=== PATIENT | female | born 1980 | race Caucasian/White ===

== ENCOUNTER 2021-03-03 11:14 | Emergency (ER) | payer BC, SELFPAY ==
[2021-03-03 11:21] VITALS: BP 141/86; PULSE 85; RESP 15; TEMP 36.7; O2SAT 100; BMI 34.2
[2021-03-03] MEDS: Fluorescein Sodium STRIP 1 STRIP EYE-LEFT (11:39)
[2021-03-03] MEDS: Tetracaine HCl/PF 0.5% Oph Sol 4 ML DROPS 3 DROP EYE-LEFT (11:39)
--- NOTE | 2021-03-03 11:58 | ED_ITS ---
HPI - Eye Problem General Chief complaint: Eye Problems Stated complaint: red swollen lt eye Time Seen by Provider: 03/03/21 11:29 Source: patient Mode of arrival: ambulatory History of Present Illness HPI Narrative: 40-year-old female presenting to the ED complaining of left eye pain, erythema, and foreign body sensation since yesterday. Admits to slight drainage/crusting this morning. Denies direct trauma. Denies known foreign body, visual change/loss/blurry vision, nausea/vomiting Patient does not were glasses or contacts MD chief complaint: eye pain and eye redness Related Data Previous Rx's Medication Instructions Recorded polymyxin B sulfate 10,000 1 drp OPHTHALMIC-LEFT Q3H 7 Days 03/03/21 unit-trimethoprim 1 mg/mL eye #10 ml drops (Polytrim) Allergies Allergy/AdvReac Type Severity Reaction Status Date / Time No Known Allergies Allergy Verified 03/03/21 11:21 [No Known Allergies*] Review of Systems Review of Systems: Constitutional: No Fever, No Chills ENT/Mouth: No Ear Pain, No Nasal Congestion, No sore throat, No Rhinorrhea Eye: + left eye pain, + left eye irritation/erythema, no visual loss Gastrointestinal: No Nausea, No Vomiting Skin: No Skin Lesions, No rash Neuro: no headache Yes all other systems are reviewed and are negative Eyes: Eyes: Denies photophobia PMFSH Past Medical History Attestation statement: The following information was validated with the patient. Medical History (Updated 03/03/21 @ 11:59 by LORI Fried) No known health problems Social History Social History Advance Directives: Yes Advance Directives Information Provided: Yes Advance Directives on File: No Patient : No Physical Exam Vital Signs: Vital Signs: Last Vital Signs Temp 98.1 F 03/03/21 11:21 Pulse 85 03/03/21 11:21 Resp 15 03/03/21 11:21 BP 141/86 H 03/03/21 11:21 Pulse Ox 100 03/03/21 11:21 Body Mass Index 34.2 Const: General: cooperative and healthy appearing Orientation/consci ousness: patient oriented x3 Limitations: no limitations HENMT: Head: Yes normal to inspection Ears: hearing grossly normal bilaterally General nose exam: Normal external nose present Face and sinus: Yes normal facial exam Eyes: Other: Visual acuity 20/30 right eye, 20/200 left eye IOP: 12, 13, 12 in left eye General: appearance normal, both eyes and all related structures Periorbital: periorbital findings normal Eyelids: Yes eyelids normal Conjunctivae: conjunctival abnormal left conjunctival injection diffuse; Negative for without discharge Corneas: fluorescein used (No fluorescein uptake in left eye, however tetracaine relieved pain) Pupils: Equal, round and reactive pupils present EOM: EOMs intact bilaterally and no movement deficit Direct Ophthalmoscopy: normal light reflex, no photophobia and No photophobia Neck: Neck: Yes normal visual inspection and Yes no meningeal signs Resp: Effort & Inspection: normal respiratory effort and no respiratory distress Cardio: Rate: regular rate Skin: Rashes: no rashes Wounds: no wounds Neuro: General: patient oriented x3 and no meningeal signs Cranial nerves: Yes Equal, round and reactive pupils present Gait exam (Neuro): Normal gait present Extrem: General: Yes normal to inspection MDM - Eye Problem MDM Narrative Medical decision making narrative: 40-year-old female presenting to the ED complaining of left eye pain, erythema, and foreign body sensation since yesterday. On exam VSS, NAD/well-appearing, physical exam as above. No fluorescein uptake however tetracaine completely relieved pain. IOP is WNL, EOMs intact, no evidence of globe rupture. Low concern for glaucoma/preseptal or orbital cellulitis Discharge Plan Discharge Clinical Impression: Corneal abrasion Qualifiers: Encounter type: initial encounter Laterality: left Qualified Code(s): S05.02XA - Injury of conjunctiva and corneal abrasion without foreign body, left eye, initial encounter Patient Disposition: Home, Self-Care Instructions: Corneal Abrasion (ED) Additional Instructions: You likely have a corneal abrasion, Polytrim eyedrops are antibiotic drops, please use as directed You need to follow-up with the paper machine back tender on Friday If her symptoms persist or worsen, you have nausea/vomiting, visual loss return to the ED med Prescriptions: New polymyxin B sulf-trimethoprim [Polytrim] 10,000 unit- 1 mg/mL drops 1 drp ophthalmic-Left Q3H 7 Days Qty: 10 RF: 0 Referrals: Isaiah Aldana [Physician] - 2 days
== END 2021-03-03 12:44 | disposition home or self-care (01) ==
PROVIDERS: Emergency Provider Emergency Medicine; PCP Nurse Practitioner Family
DX: S05.02XA Injury of conjunctiva and corneal abrasion without foreign body, left eye, initial encounter (principal); X58.XXXA Exposure to other specified factors, initial encounter; Y93.9 Activity, unspecified; Y92.9 Unspecified place or not applicable; Y99.9 Unspecified external cause status
CPT/HCPCS: 99283; 99284

== ENCOUNTER 2021-04-29 16:09 | Emergency (ER) | payer BC, SELFPAY ==
--- NOTE | ~2021-04-29 | XR_ITS ---
EXAMINATION: XR WRIST, RIGHT CLINICAL INFORMATION: Right wrist pain after fall. COMPARISON: None TECHNIQUE: PA, lateral, and oblique views of the right wrist. FINDINGS: The bones and soft tissues are normal. No fracture. Alignment is anatomic with normal joint spaces. No erosions or abnormal soft tissue calcifications. XR/XR wrist RT min 3V IMPRESSION: Unremarkable right wrist exam
[2021-04-29 16:16] VITALS: BP 137/86; PULSE 80; RESP 18; TEMP 36.8; O2SAT 99; BMI 34.2
--- NOTE | 2021-04-29 17:25 | ED_ITS ---
HPI - Extremity Problem General Chief complaint: Extremity Injury, Upper Stated complaint: Fall/R wrist pain Time Seen by Provider: 04/29/21 17:09 Source: patient Mode of arrival: ambulatory Limitations: no limitations History of Present Illness HPI Narrative: Patient presents to the ED for right wrist pain bending down low and breaking fall by putting wrist on fence. patient states sharp edge of fence punctured her wrist and has had decreased ROM ever since. Patient denies hitting head, body hitting the ground or loss of consciousness. MD Complaint: extremity pain Related Data Previous Rx's Medication Instructions Recorded polymyxin B sulfate 10,000 1 drp OPHTHALMIC-LEFT Q3H 7 Days 03/03/21 unit-trimethoprim 1 mg/mL eye #10 ml drops (Polytrim) cephalexin 500 mg capsule 500 mg PO QID #28 cap 04/29/21 naproxen 500 mg tablet 500 mg PO BID PRN 10 Days #20 tab 04/29/21 Allergies Allergy/AdvReac Type Severity Reaction Status Date / Time No Known Allergies Allergy Verified 04/29/21 16:16 [No Known Allergies*] Review of Systems Review of Systems: Yes all other systems are reviewed and are negative Constitutional: Constitutional: Reports as per HPI and Reports no additional constitutional complaints Eyes: Eyes: Reports as per HPI and Reports no additional eye complaints ENT: Reports system reviewed and no additional complaints, except as documente d and Reports as per HPI Cardiovascular: Cardiovascular: Reports as per HPI and Reports no additional cardiovascular complaints Respiratory: Respiratory: Reports as per HPI and Reports no additional respiratory complaints Gastrointestinal: Gastrointestinal: Reports as per HPI and Reports no additional gastrointestinal complaints Genitourinary: Genitourinary: Reports no additional female genitourinary complaints and Reports as per HPI Musculoskeletal: Musculoskeletal: Reports no additional musculoskeletal complaints, Reports as per HPI and Reports arthralgias (wrist pain) Integumentary/Breasts: Skin/Breast: Reports system reviewed and no additional complaints, except as docu and Reports as per HPI Psychiatric: Psychiatric: Reports no additional psychiatric complaints and Reports as per HPI PMFSH Past Medical History Medical History (Updated 04/29/21 @ 17:53 by LORI Mccracken) No known health problems Social History Social History Advance Directives: No Advance Directives Information Provided: No Patient : No Physical Exam Vital Signs: Vital Signs: Last Vital Signs Temp 98.2 F 04/29/21 16:16 Pulse 80 04/29/21 16:16 Resp 18 04/29/21 16:16 BP 137/86 04/29/21 16:16 Pulse Ox 99 04/29/21 16:16 Body Mass Index 34.2 Const: General: cooperative, healthy appearing and comfortable Orientation/consciousness: patient oriented x3 HENMT: Head: Yes normal to inspection, Yes No palpable skull fracture present, Yes normocephalic, Yes atraumatic and No abrasion Eyes: General: appearance normal, both eyes and all related structures Neck: Neck: Yes normal visual inspection, Yes full ROM, Yes no lymphadenopathy, Yes no meningeal signs, Yes trachea midline, Yes supple and No tender Chest: Chest palpation & inspection: normal inspection of the chest and normal palpation of entire chest wall Resp: Effort & Inspection: normal respiratory effort and able to speak in complete sentences Auscultation: clear to auscultation bilaterally Cardio: Jugular venous distension: no JVD Heart sounds: S1 normal heart sound present and S2 normal heart sound present GI: Inspection: Yes normal to inspection Palpation (GI): Soft to palpation, not firm, nontender, no guarding and not rigid : General: No CVA tenderness and Yes no CVA tenderness Back/Spine/Pelvis: Back: no CVA tenderness, No CVA tenderness and No back tenderness Skin: General skin exam: no rashes or lesions noted and elasticity normal Neuro: General: patient oriented x3, gait normal, no meningeal signs and CN's II-XI intact bilaterally Cranial nerves: Yes CN's II-XII intact bilaterally Extrem: General: Yes normal to inspection and Yes full ROM Hand/finger images: 1. small puncture wound and significant tenderness on palpation. negative for any active bleeding. patient able to flex and extend wrist, but with significant limitation due to pain. patient able to do Ok sign with all fingers. Capillary refill intact. Neuro and vascular exam is intact. negative for signs of infection Psych: Appearance: grossly normal, well kempt and not disheveled Course Course Course Narrative: Sent for xray Reevaluation(s) Reevaluation #1: Xray negative for any fractures. Patient explained differential may be muscle bruise, nerve damage or tendon/ligament injury due to puncture wound. patient placed in velcro splint and will be discharged with antibiotics. patient uptodate with tetanus. Puncuture wound was cleaned. Time: 17:48 MDM - Extremity (Nontraumatic) MDM Narrative Medical decision making narrative: Wrist sprain. puncuture wound Discharge Plan Discharge Clinical Impression: Puncture wound, Sprain of wrist Patient Disposition: Home, Self-Care Instructions: Wrist Injury (ED), Puncture Wound (ED) Additional Instructions: Xray negtive for fracture. History and physical exam indicate possible nerve vs tendon injury. you will need follow up with Dr. Brooke of Hand Surgery for ree-valuation and MRI. Return to the ED immeidatley for swelling, redness, pus discharge, numbness/tingling/paralysis, bluish black discoloration, or any other concerning symptoms. Prescriptions: New cephalexin 500 mg capsule 500 mg PO QID Qty: 28 RF: 0 naproxen 500 mg tablet 500 mg PO BID PRN (Reason: pain) 10 Days Qty: 20 RF: 0 No Action polymyxin B sulf-trimethoprim [Polytrim] 10,000 unit- 1 mg/mL drops 1 drp ophthalmic-Left Q3H 7 Days Qty: 10 RF: 0 Referrals: Radha Brooke MD [Physician] - 2 days (Puncture wound. decrease ROM of wrist. possible nerve vs tendon injury. WIll need MRI.) Discharge Date/Time: 04/29/21 18:11 Print Language: Argentine
[2021-04-29] MEDS: Ketorolac Tromethamine 15 MG/ML VIAL 30 MG IM (17:44)
== END 2021-04-29 18:11 | disposition home or self-care (01) ==
PROVIDERS: Emergency Provider Internal Medicine; PCP Nurse Practitioner Family
DX: S63.501A Unspecified sprain of right wrist, initial encounter (principal); S61.531A Puncture wound without foreign body of right wrist, initial encounter; M25.531 Pain in right wrist; X50.1XXA Overexertion from prolonged static or awkward postures, initial encounter; Y93.9 Activity, unspecified; Y92.9 Unspecified place or not applicable; Y99.9 Unspecified external cause status; Z79.899 Other long term (current) drug therapy
CPT/HCPCS: 73110; 96372; 99284; J1885

== ENCOUNTER → 2021-04-30 13:30 | Outpatient (BNVA) | payer BC, SELFPAY | PROVIDERS: Visit Provider Orthopaedic Surgery ==

== ENCOUNTER → 2021-05-02 12:23 | Outpatient (BNVA) | payer BC, SELFPAY | PROVIDERS: Visit Provider Orthopaedic Surgery ==

== ENCOUNTER 2022-01-18 13:42 | Emergency (ER) | payer BC, SELFPAY ==
--- NOTE | ~2022-01-18 | CT_ITS ---
EXAMINATION: CT abdomen pelvis wo con CLINICAL INFORMATION: Reason for Exam right flank pain + covid COMPARISON: No prior CT available for comparison. TECHNIQUE: Multidetector volumetric imaging was performed from the superior aspect of the liver through the pubic symphysis 100 mL of Omnipaque 350 injected Sagittal and coronal reformatted images were obtained on the technologist's workstation. This CT examination was performed using dose optimization techniques as appropriate, variously including the following: *Automated exposure control *Adjustment of mA and/or kV according to patient size (this includes techniques or standardized protocols for targeted exams where dose is matched to indication/reason for exam; i.e. extremities or head) *Use of iterative reconstruction technique DLP: 836 mGy-cm FINDINGS: LOWER THORAX: Included lung bases are clear. HEPATOBILIARY: No focal hepatic lesions. No biliary ductal dilatation. GALLBLADDER: Gallbladder unremarkable. SPLEEN: Spleen is normal in size. PANCREAS: No focal mass or ductal dilatation. STOMACH AND GASTROINTESTINAL TRACT: Stomach is grossly unremarkable. There is no bowel distention or thickening. No CT evidence of appendicitis. ADRENALS: No adrenal nodules. KIDNEYS/URETERS: No hydronephrosis, stones or solid mass lesions. Tiny cyst protruding from the upper pole left kidney 0.6 cm otherwise kidneys normal. URINARY BLADDER: Partially decompressed. PELVIC VISCERA: Bulky heterogeneous uterus, cannot rule out underlying uterine masses possibly fibroids, ovarian follicles, there is a free fluid in the pelvis nonspecific. PERITONEUM: Small amount of free fluid in the dependent portion of the pelvis uncertain etiology. LYMPH NODES: No lymphadenopathy. VASCULAR:Abdominal aorta normal in size, no aneurysm found. BONES, ABDOMINAL WALL AND SOFT TISSUES: Sclerotic density in the right iliac bone probably bone island. CT/CT abdomen pelvis wo con IMPRESSION: *No CT evidence of appendicitis, normal appendix identified. *Heterogeneous bulky uterus, possibly underlying uterine masses, possibly fibroid uterus, may consider correlation with follow-up pelvic ultrasound. * Small amount of free fluid in the dependent portion of the pelvis cul-de-sac uncertain etiology. *No kidney stone or hydronephrosis. No other explanation for patient's pain symptoms.
--- NOTE | ~2022-01-18 | XR_ITS ---
EXAMINATION: XR CHEST CLINICAL INFORMATION: Cough. COVID. COMPARISON: None TECHNIQUE: 2 views of the chest were obtained. FINDINGS: Right infrahilar opacity suspicious for pneumonia. Trace right effusion on lateral radiograph. Normal lung volumes. Normal heart size without pulmonary edema. Normal gas pattern. No acute osseous finding. XR/XR chest 2V IMPRESSION: Right infrahilar opacity and trace right effusion suspicious for pneumonia.
[2022-01-18 14:10] VITALS: BP 125/78; PULSE 80; RESP 18; TEMP 37.1; O2SAT 96; BMI 32.2
[2022-01-18 14:51] LABS: MANUAL DIFF FLAG NO
[2022-01-18 14:53] LABS: Basophils Percent Auto 0.2 % (0-2); Eosinophils Absolute Auto 0.2 X10*3/uL (0.0-0.4); Eosinophils Percent Auto 2.3 % (0-4); Hemoglobin 12.9 g/dl (12.0-16.0); Imm Gran Abs Auto 0.01 X10*3/uL (0.00-0.03); Imm Gran Pct Auto 0.1 % (0.0-0.4); Lymphocytes Absolute Auto 1.6 X10*3/uL (1.2-4.9); Mean Corpuscular HGB Conc 32.3 g/dl (31.0-35.0); Mean Corpuscular Hemoglobin 27.8 pg (27.0-33.0); Mean Corpuscular Volume 86.2 fL (80.0-98.0); Mean Platelet Volume 10.3 fL (9.4-12.3); Monocytes Absolute Auto 0.5 X10*3/uL (0.1-1.2); Monocytes Percent Auto 5.5 % (2-11); Neutrophils Absolute Auto 6.6 x10*3/uL (2.0-8.3); Neutrophils Percent Auto 73.9 % (45-73); Platelet Count 322 X10*3/uL (160-400); Red Blood Count 4.64 X10*6/uL (4.20-5.50); Red Cell Distribution Width 13.3 % (11.0-16.0); White Blood Count 8.9 X10*3/uL (4.8-10.8)
[2022-01-18 15:14] LABS: Anion Gap 10 (12-20); Blood Urea Nitrogen 9 mg/dL (9-16); Calcium 8.4 mg/dL (8.4-10.2); Carbon Dioxide 27 mmol/L (22-29); Chloride 106 mmol/L (96-108); Creatinine Clr Calc Pharmacy 115.7; Estimated Glomerular Filt Rate > 60; Glucose Random 96 mg/dL (60-115); Potassium 3.7 mmol/L (3.3-5.1); Sodium 139 mmol/L (135-145)
[2022-01-18 16:53] LABS: UPreg QC Valid YES; Urine Pregnancy NEGATIVE (NEGATIVE)
[2022-01-18 16:53] LABS: Appearance Urine CLEAR; Color Urine YELLOW; Glucose Urine UA NEG (NEG); Leukocyte Esterase Urine NEG (NEG); Nitrite Urine NEG (NEG); PH 5.5 (5.0-8.0); Specific Gravity - Urine 1.025 (1.005-1.025); UACC Culture Trigger NO; Urine Blood 1+ (NEG); Urine Ketones NEG (NEG); Urine Protein NEG (NEG-TRACE)
[2022-01-18 16:56] LABS: Squamous Epithelial Cell Urine 1+ /LPF; WBC Urine 0 /HPF (0-4)
[2022-01-18 17:11] LABS: Alanine Aminotransferase 8 U/L (0-31); Albumin Level 4.2 g/dL (3.5-5.0); Alkaline Phosphatase 79 U/L (39-117); Aspartate Amino Transferase 11 U/L (5-31); Bilirubin Direct 0.2 mg/dL (0.0-0.5); Bilirubin Total 0.4 mg/dL (0.0-1.0); Lipase 27 U/L (8-78); Total Protein 7.1 g/dL (6.5-8.0)
[2022-01-18 17:17] LABS: HCG Quantitative < 2 mIU/mL
--- NOTE | 2022-01-18 17:28 | ED_ITS ---
HPI - Back Pain/Injury General Chief Complaint: Back Pain/Injury Stated Complaint: kidney pain Time Seen by Provider: 01/18/22 16:23 Source: patient Mode of arrival: ambulatory Limitations: no limitations History of Present Illness HPI Narrative: 41-year-old female who reports she just tested positive for COVID yesterday who denies any other medical history presenting to the ED with complaints of back pain right-sided that is radiating to her right flank that started around 8-9 p.m. while she was just resting and worse today. She reports that she also seen some blood in her urine. She reports she has never had this pain in the past. She also reports a dry cough for the past 3 weeks this is why she tested herself for COVID. She denies any fevers, chills, dizziness, headaches, neck pain/stiffness, chest pain or shortness of breath consciousness exertion, orthopnea, palpitations, paresthesias, abdominal distension or weight gain, diarrhea constipation, black or bloody stools, dysuria, abnormal vaginal discharge, recent travel or sick contacts or any other symptoms complaints or concerns at this time. MD elicited complaint: back pain Onset (ago): day(s) (Since last night) Timing: constant and progressively worsening Severity: moderate Similar Symptoms Previously: No Quality: aching Location: right flank and right lower back Radiation: abdomen Exacerbating factors: movement, sitting upright, walking, lifting and other (And palpation) Relieving factors: none Context: unknown Associated symptoms: hematuria Treatments prior to arrival: other (She has tried [id number] medication no symptomatic relief) Work related injury: No Related Data Home Medications Medication Instructions Recorded Confirmed bupropion HCl 100 mg tablet,12 hr 100 mg PO BEDTIME 04/30/21 sustained-release (Wellbutrin SR) sumatriptan succinate 25 mg tablet 25 mg PO Q2-4H PRN 04/30/21 venlafaxine 25 mg tablet 25 mg PO DAILY 04/30/21 Previous Rx's Medication Instructions Recorded polymyxin B sulfate 10,000 1 drp ophthalmic-Left Q3H 7 days 03/03/21 unit-trimethoprim 1 mg/mL eye #10 mL drops (Polytrim) cephalexin 500 mg capsule 500 mg PO QID #28 caps 04/29/21 naproxen 500 mg tablet 500 mg PO BID PRN pain 10 days #20 04/29/21 tabs sulfamethoxazole 800 1 tab PO BID 7 days #14 tabs 04/30/21 mg-trimethoprim 160 mg tablet (Bactrim DS) codeine 10 mg-guaifenesin 100 mg/5 5 ml PO Q6H PRN cold symptoms #120 01/18/22 mL oral liquid (Guaifenesin AC) mL cyclobenzaprine 10 mg tablet 10 mg PO Q8H PRN Muscle spasm #14 01/18/22 tabs doxycycline monohydrate 100 mg 100 mg PO BID Pneumonia 10 days 01/18/22 tablet #20 tabs naproxen 500 mg tablet 500 mg PO BID PRN pain #14 tabs 01/18/22 oxycodone 5 mg tablet 5 mg PO Q6H PRN pain #14 tabs 01/18/22 Allergies Allergy/AdvReac Type Severity Reaction Status Date / Time No Known Allergies Allergy Verified 01/18/22 14:15 [No Known Allergies*] Review of Systems Review of Systems: Constitutional : No trauma, No Weight loss, No Fever, No Chills, ENT/Mouth : No Hearing loss, No Ear Pain, No Nasal Congestion, No Sinus Pain, No Hoarseness, No sore throat, No Rhinorrhea, No Swallowing Difficulty Cardiovascular : No Chest Pain, No SOB Respiratory : No Cough, No Dyspnea Gastrointestinal : No Nausea, No Vomiting, No Diarrhea, + abdominal Pain, No Hematochezia, No Melena Genitourinary : No Dysuria, No Urinary Frequency, + Hematuria, No Urinary or Bowel Incontinence/retention Musculoskeletal : + Back pain, No neck pain, No joint stiffness, No joint swelling Skin : No Skin Lesions, No rash or signs of infection Neuro : No Weakness, No radiation, No Numbness, No Paresthesias, No headache, no loss of bowel or bladder incontinence, no saddle anesthesia, Focal weakness, No radiation Denies history of IV drug usage. Yes all other systems are reviewed and are negative [facility] Past Medical History Attestation statement: The following information was validated with the patient. Source: old records reviewed and nursing notes reviewed Medical History No known health problems Social History Social History Advance Directives: No Advance Directives Information Provided: No Current occupation: [employer]. Physical Exam Vital Signs: Vital Signs: Last Vital Signs Temp 98.7 F 01/18/22 14:10 Pulse 80 01/18/22 14:10 Resp 18 01/18/22 14:10 BP 125/78 01/18/22 14:10 Pulse Ox 96 01/18/22 14:10 O2 Del Method 01/18/22 14:10 BMI result Body Mass Index 32.2 vital signs have been reviewed as normal and appeared to be correct. Blood pressure normal. Heart rate normal. Respiration rate normal. Temperature normal. Oxygen saturation normal. Appearance: Alert. Oriented X3. No acute distress. Head: Normal external exam. Normocephalic. Atraumatic. Eyes: PERRLA. EOMI. Conjunctiva and sclera normal. Eyelids normal. ENT: Pharynx normal. Uvula midline. Moist mucous membranes. No trismus noted. No drooling noted. No muffled voice noted. Neck: Normal inspection. Neck supple. FROM. No adenopathy. Thyroid Normal. No meningeal signs. No neck mass noted. CVS: Normal heart rate and rhythm. Heart sound normal. No murmurs noted. Pulses normal throughout. Respiratory: No respiratory distress. Painless inspiration. Breath sounds normal. No wheezes/rales/rhonchi noted. Chest nontender. No accessory muscle usage noted or decreased air movement noted. Abdomen: Soft and moderate tenderness palpation to the right upper quadrant/right flank with guarding. Bowel sounds normal in all 4 quadrants. No distention noted. No organomegaly noted. No visible injury noted. Back: + right sided CVA tenderness. No left-sided CVA tenderness noted. Full range of motion noted. No obvious deformities, or edema. Mild para-spinal muscular tenderness from lumbar region to coccyx. Full ROM in back and lower extremities. 5/5 strength hip extension/flexion, abduction, adduction. Mild Lumbar pain with hip flexion against resistance. Straight leg raise test negative on right; Straight leg raise test negative on left; Reflexes normal ankle and knee bilaterally; EHL motor strength normal bilaterally. No r ashes/lesion/induration/fluctuance or signs infection noted. Skin: Skin warm and dry. Normal skin color. Normal skin turgor. No rashes/lesions/lacerations noted. Extremities: No lower extremity edema. Extremities exhibit normal range of motion. Extremities nontender. Neuro: Oriented X 3. No motor deficit. No sensory deficit. Reflexes normal. Patient has a normal steady gait. Course Course Course Narrative: 16:35pm - 41-year-old female who reports she just tested positive for COVID yesterday who denies any other medical history presenting to the ED with complaints of back pain right-sided that is radiating to her right flank that started around 8-9 p.m. while she was just resting and worse today. She reports that she also seen some blood in her urine. She reports she has never had this pain in the past. She also reports a dry cough for the past 3 weeks this is why she tested herself for COVID. Labs were obtained while the patient was in the waiting room and anion gap 10. Otherwise all other labs are within normal limits. UA revealed blood otherwise no evidence of UTI. Patient negative for . Plan: Therefore at this time will obtain a CT scan abdomen pelvis without IV contrast provide 60 mg of IM Toradol and 5 mg of oxycodone re-evaluate. Reevaluation(s) Reevaluation #1: - chest x-ray revealed a Right infrahilar opacity and trace right effusion suspicious for pneumonia. Although patient oxygen saturation 96% on room air she denies any shortness of breath or dyspnea on exertion or orthopnea and there is no lower extremity edema or calf tenderness noted. Therefore no additional labs or imaging indicated at this time. - CT scan abdomen pelvis without IV contrast revealed possible uterine fibroids versus cyst and recommended follow-up pelvic ultrasound. Along with the kidney cyst otherwise no other acute processes. No explanation for the patient's pain. - therefore printed out the results and explained to the patient that she does have a kidney cyst most likely not causing her pain and that she should have a follow-up ultrasound she reported that she is being worked up for possible fibroids/cyst due to irregular bleeding therefore she is already on top of this. - will DC home with antibiotics for COVID pneumonia along with symptomatic treatment for muscular skeletal pain and to return if any new or worsening symptoms. Patient understands agrees with this plan. Time: 18:28 [facility] - Back Pain/Injury Medical Records Attestation: I reviewed the patient's medical records. Lab Data Attestation: I reviewed the patient's lab results. Result diagrams: 01/18/22 14:47 01/18/22 14:47 Labs: Lab Results 01/18/22 01/18/22 01/18/22 Range/Units 14:47 14:47 16:42 WBC 8.9 (4.8-10.8) X10*3/uL RBC 4.64 (4.20-5.50) X10*6/uL Hgb 12.9 (12.0-16.0) g/dl Hct 40.0 (37.0-47.0) % MCV 86.2 (80.0-98.0) fL MCH 27.8 (27.0-33.0) pg MCHC 32.3 (31.0-35.0) g/dl RDW 13.3 (11.0-16.0) % Plt Count 322 (160-400) X10*3/uL MPV 10.3 (9.4-12.3) fL Immature Gran % (Auto) 0.1 (0.0-0.4) % Neut % (Auto) 73.9 H (45-73) % Lymph % (Auto) 18.0 L (20-40) % Bracken % (Auto) 5.5 (2-11) % Eos % (Auto) 2.3 (0-4) % Baso % (Auto) 0.2 (0-2) % Lymph # (Auto) 1.6 (1.2-4.9) X10*3/uL Bracken # (Auto) 0.5 (0.1-1.2) X10*3/uL Eos # (Auto) 0.2 (0.0-0.4) X10*3/uL Baso # (Auto) 0.0 (0.0-0.2) X10*3/uL Abs Immat Gran (auto) 0.01 (0.00-0.03) X10*3/uL Absolute Neuts (auto) 6.6 (2.0-8.3) x10*3/uL Absolute Nucleated RBC 0.000 (0.0-0.012) X10*3/uL Nucleated RBC % (auto) 0.0 (0.0-0.2) /100WBC Sodium 139 (135-145) mmol/L Potassium 3.7 (3.3-5.1) mmol/L Chloride 106 (96-108) mmol/L Carbon Dioxide 27 (22-29) mmol/L Anion Gap 10 L (12-20) BUN 9 (9-16) mg/dL Creatinine 0.76 (0.5-1.4) mg/dL Estim Creat Clear Calc 115.7 Estimated GFR > 60 Random Glucose 96 (60-115) mg/dL Calcium 8.4 (8.4-10.2) mg/dL Total Bilirubin 0.4 (0.0-1.0) mg/dL Direct Bilirubin 0.2 (0.0-0.5) mg/dL AST 11 (5-31) U/L ALT 8 (0-31) U/L Alkaline Phosphatase 79 (39-117) U/L Total Protein 7.1 (6.5-8.0) g/dL Albumin 4.2 (3.5-5.0) g/dL Lipase 27 (8-78) U/L Beta HCG, Quant < 2 mIU/mL Urine Color Urine Appearance Urine pH (5.0-8.0) Ur Specific [place] (1.005-1.025) Urine Protein (NEG-TRACE) MG/DL Urine Glucose (UA) (NEG) MG/DL Urine Ketones (NEG) MG/DL Urine Blood (NEG) Urine Nitrite (NEG) Ur Leukocyte Esterase (NEG) Urine RBC (0) /HPF Urine WBC (0-4) /HPF Ur Squamous Epith Cells /LPF Urine Bacteria /LPF Urine Test NEGATIVE (NEGATIVE) 01/18/22 Range/Units 16:43 WBC (4.8-10.8) X10*3/uL RBC (4.20-5.50) X10*6/uL Hgb (12.0-16.0) g/dl Hct (37.0-47.0) % MCV (80.0-98.0) fL MCH (27.0-33.0) pg MCHC (31.0-35.0) g/dl RDW (11.0-16.0) % Plt Count (160-400) X10*3/uL MPV (9.4-12.3) fL Immature Gran % (Auto) (0.0-0.4) % Neut % (Auto) (45-73) % Lymph % (Auto) (20-40) % Bracken % (Auto) (2-11) % Eos % (Auto) (0-4) % Baso % (Auto) (0-2) % Lymph # (Auto) (1.2-4.9) X10*3/uL Bracken # (Auto) (0.1-1.2) X10*3/uL Eos # (Auto) (0.0-0.4) X10*3/uL Baso # (Auto) (0.0-0.2) X10*3/uL Abs Immat Gran (auto) (0.00-0.03) X10*3/uL Absolute Neuts (auto) (2.0-8.3) x10*3/uL Absolute Nucleated RBC (0.0-0.012) X10*3/uL Nucleated RBC % (auto) (0.0-0.2) /100WBC Sodium (135-145) mmol/L Potassium (3.3-5.1) mmol/L Chloride (96-108) mmol/L Carbon Dioxide (22-29) mmol/L Anion Gap (12-20) BUN (9-16) mg/dL Creatinine (0.5-1.4) mg/dL Estim Creat Clear Calc Estimated GFR Random Glucose (60-115) mg/dL Calcium (8.4-10.2) mg/dL Total Bilirubin (0.0-1.0) mg/dL Direct Bilirubin (0.0-0.5) mg/dL AST (5-31) U/L ALT (0-31) U/L Alkaline Phosphatase (39-117) U/L Total Protein (6.5-8.0) g/dL Albumin (3.5-5.0) g/dL Lipase (8-78) U/L Beta HCG, Quant mIU/mL Urine Color YELLOW Urine Appearance CLEAR Urine pH 5.5 (5.0-8.0) Ur Specific [place] 1.025 (1.005-1.025) Urine Protein NEG (NEG-TRACE) MG/DL Urine Glucose (UA) NEG (NEG) MG/DL Urine Ketones NEG (NEG) MG/DL Urine Blood 1+ H (NEG) Urine Nitrite NEG (NEG) Ur Leukocyte Esterase NEG (NEG) Urine RBC 5-9 H (0) /HPF Urine WBC 0 (0-4) /HPF Ur Squamous Epith Cells 1+ /LPF Urine Bacteria NONE /LPF Urine Test (NEGATIVE) Imaging Data CT scan abdomen pelvis without IV contrast: Attestation: I personally reviewed and interpreted this imaging study as follows: Radiologist's impression: FINDINGS: LOWER THORAX: Included lung bases are clear. HEPATOBILIARY: No focal hepatic lesions. No biliary ductal dilatation. GALLBLADDER: Gallbladder unremarkable. SPLEEN: Spleen is normal in size. PANCREAS: No focal mass or ductal dilatation. STOMACH AND GASTROINTESTINAL TRACT: Stomach is grossly unremarkable. There is no bowel distention or thickening. No CT evidence of appendicitis. ADRENALS: No adrenal nodules. KIDNEYS/URETERS: No hydronephrosis, stones or solid mass lesions. Tiny cyst protruding from the upper pole left kidney 0.6 cm otherwise kidneys normal. URINARY BLADDER: Partially decompressed. PELVIC VISCERA: Bulky heterogeneous uterus, cannot rule out underlying uterine masses possibly fibroids, ovarian follicles, there is a free fluid in the pelvis nonspecific. PERITONEUM: Small amount of free fluid in the dependent portion of the pelvis uncertain etiology. LYMPH NODES: No lymphadenopathy. VASCULAR:Abdominal aorta normal in size, no aneurysm found. BONES, ABDOMINAL WALL AND SOFT TISSUES: Sclerotic density in the right iliac bone probably bone island. CT/CT abdomen pelvis wo con IMPRESSION: *No CT evidence of appendicitis, normal appendix identified. ? *Heterogeneous bulky uterus, possibly underlying uterine masses, possibly fibroid uterus, may consider correlation with follow-up pelvic ultrasound. ? * Small amount of free fluid in the dependent portion of the pelvis cul-de-sac uncertain etiology. ? *No kidney stone or hydronephrosis. No other explanation for patient's pain symptoms. Chest x-ray: Attestation: I personally reviewed and interpreted this imaging study as follows: Radiologist's impression: FINDINGS: Right infrahilar opacity suspicious for pneumonia. Trace right effusion on lateral radiograph. Normal lung volumes. Normal heart size without pulmonary edema. Normal gas pattern. No acute osseous finding. XR/XR chest 2V IMPRESSION: Right infrahilar opacity and trace right effusion suspicious for pneumonia. Discharge Plan Discharge Clinical Impression: Pneumonia, Pain on movement of skeletal muscle, Kidney cysts, Fibroid, uterine Patient Disposition: Home, Self-Care Instructions: Musculoskeletal Pain (ED), Pneumonia (ED), Kidney Cyst (ED) Additional Instructions: You should have an outpatient ultrasound of your uterus/ovaries due to abnormal uterine possible fibroids versus cyst. It appears that you also have a pneumonia therefore we are prescribing you doxycycline although doxycycline can cause a sunburn therefore avoid the sun or use sun block/some screen. Self isolate per CDC guidelines. Return if any new or worsening symptoms especially if you develop any shortness of breath you should by and oxygen saturation machine and monitor your oxygen anything below 90 you should return to the emergency department immediately. Otherwise follow-up with her primary care provider. Prescriptions: New doxycycline monohydrate 100 mg tablet 100 mg PO BID 10 Days Qty: 20 0RF cyclobenzaprine 10 mg tablet 10 mg PO Q8H PRN (Reason: Muscle spasm) Qty: 14 0RF codeine-guaifenesin [Guaifenesin AC] 10-100 mg/5 mL liquid 5 ml PO Q6H PRN (Reason: cold symptoms) Qty: 120 0RF naproxen 500 mg tablet 500 mg PO BID PRN (Reason: pain) Qty: 14 0RF oxycodone 5 mg tablet 5 mg PO Q6H PRN (Reason: pain) Qty: 14 0RF Rx Instructions: Partial Fill upon patient request. No Action polymyxin B sulf-trimethoprim [Polytrim] 10,000 unit- 1 mg/mL drops 1 drp ophthalmic-Left Q3H 7 Days Qty: 10 0RF Rx Instructions: while awake; do not exceed 6 doses in 24 hours cephalexin 500 mg capsule 500 mg PO QID Qty: 28 0RF naproxen 500 mg tablet 500 mg PO BID PRN (Reason: pain) 10 Days Qty: 20 0RF sulfamethoxazole-trimethoprim [Bactrim DS] 800-160 mg tablet 1 tab PO BID 7 Days Qty: 14 0RF Referrals: Vale Mahmood, ANGIE [Primary Care Provider] - 1 week
[2022-01-18] MEDS: oxyCODONE HCl Immed Release 5 MG TABLET PO (18:08)
[2022-01-18] MEDS: Ketorolac Tromethamine 60 MG/2 ML VIAL IM (18:08)
== END 2022-01-18 18:35 | disposition home or self-care (01) ==
PROVIDERS: Physician Assistant Medical; Emergency Provider Emergency Medicine; PCP Nurse Practitioner Family
DX: U07.1 COVID-19 (principal); J12.82 Pneumonia due to coronavirus disease 2019; M79.10 Myalgia, unspecified site; Q61.01 Congenital single renal cyst; D25.9 Leiomyoma of uterus, unspecified; Z79.899 Other long term (current) drug therapy
CPT/HCPCS: 36415; 71046; 74176; 80048; 80076; 81001; 81025; 83690; 84702; 85025; 96372; 99283; 99284; J1885

== ENCOUNTER 2022-11-22 03:00 | Emergency (ER) | payer BC, SELFPAY ==
[2022-11-22 03:15] VITALS: BP 152/77; PULSE 88; RESP 18; TEMP 36.5; O2SAT 99
[2022-11-22 03:18] VITALS: BP 152/77; PULSE 90; RESP 16; TEMP 36.5; O2SAT 98; BMI 32.0
--- NOTE | 2022-11-22 03:28 | PC.NURSE ---
Pt ca&ox3, no signs of distress. Pt reports 8/10 throat and right ear pain. Pt covid and strep swabbed. Pt given call [facility], lights dimmed, hob lowered and pt resting comfortably. Will continue to monitor.
[2022-11-22 03:37] LABS: IDNOW Serial# 08D9AD1C; Strep A Nucleic Acid Negative (Negative)
[2022-11-22 03:38] LABS: COVID-19 Test Negative (Negative); IDNOW Serial# BCCEAD1C
--- NOTE | 2022-11-22 04:02 | ED.GENADULT ---
HPI - General Adult General Chief complaint: General Medical Stated complaint: Sore throat, ?ear infection Time Seen by Provider: 11/22/22 04:00 History of Present Illness HPI narrative: Patient is 42 years old presents today with having sore throat earache bilaterally. Generalized malaise patient unable to see her primary physician presents to the ED for help. No cough no congestion or precise symptoms. No diaphoresis. Related Data Home Medications Medication Instructions Recorded Confirmed bupropion HCl 100 mg tablet,12 hr 100 mg PO BEDTIME 04/30/21 sustained-release (Wellbutrin SR) sumatriptan succinate 25 mg tablet 25 mg PO Q2-4H PRN 04/30/21 venlafaxine 25 mg tablet 25 mg PO DAILY 04/30/21 Previous Rx's Medication Instructions Recorded polymyxin B sulfate 10,000 1 drp ophthalmic-Left Q3H 7 days 03/03/21 unit-trimethoprim 1 mg/mL eye #10 mL drops (Polytrim) cephalexin 500 mg capsule 500 mg PO QID #28 caps 04/29/21 naproxen 500 mg tablet 500 mg PO BID PRN pain 10 days #20 04/29/21 tabs sulfamethoxazole 800 1 tab PO BID 7 days #14 tabs 04/30/21 mg-trimethoprim 160 mg tablet (Bactrim DS) codeine 10 mg-guaifenesin 100 mg/5 5 ml PO Q6H PRN cold symptoms #120 01/18/22 mL oral liquid (Guaifenesin AC) mL cyclobenzaprine 10 mg tablet 10 mg PO Q8H PRN Muscle spasm #14 01/18/22 tabs doxycycline monohydrate 100 mg 100 mg PO BID Pneumonia 10 days 01/18/22 tablet #20 tabs naproxen 500 mg tablet 500 mg PO BID PRN pain #14 tabs 01/18/22 oxycodone 5 mg tablet 5 mg PO Q6H PRN pain #14 tabs 01/18/22 azithromycin 250 mg tablet See Rx Instructions PO .COMPLEX 11/22/22 upper resp infection #6 tabs ibuprofen 400 mg tablet 400 mg PO Q6H PRN pain #20 tabs 11/22/22 Allergies Allergy/AdvReac Type Severity Reaction Status Date / Time No Known Allergies Allergy Verified 01/18/22 14:15 [No Known Allergies*] Review of Systems Review of Systems: Positive earache positive sore throat. No difficulty swallowing. Positive hoarseness in voice Yes all other systems are reviewed and are negative [facility] Past Medical History Attestation statement: The following information was validated with the patient. Medical History No known health problems Social History Social History Smoked in Last 30 Days: No Use of substances other than those prescribed or required for medical reasons: No Advance Directives: No Advance Directives Information Provided: Yes Patient : No Current occupation: rt handed/[employer]. Physical Exam ED Vital Signs: Vital Signs - 24 hr 11/22/22 03:15 11/22/22 03:18 Temperature 97.7 F 97.7 F Pulse Rate 88 90 Respiratory Rate 18 16 Blood Pressure 152/77 H 152/77 H Pulse Oximetry 99 98 Oxygen Delivery Method Room Air Room Air BMI result Body Mass Index 32.0 Appearance: Alert. Oriented X3. No acute distress. Eyes: Pupils equal, round and reactive to light. ENT: Pharynx normal. Positive erythema over the right ear with bulging eardrums. Neck: Normal inspection. Neck supple. No lymph nodes noted. No crepitus CVS: Normal heart rate and rhythm. Pulses normal. Normal S1 and S2 Respiratory: No respiratory distress. Breath sounds normal. No Wheezing. No rales Abdomen: Soft and nontender. No rigidity. No distention. good BS x4 Skin: Skin warm and dry. Normal skin color. Normal skin turgor. Extremities: No lower extremity edema. Neurovascular intact to all extremities. No Lacerations. No Rash Neuro: Oriented X 3. No motor deficit. No sensory deficit. Moving all extermities. No slurred speech Medical Decision Making Medical Decision Making MDM Narrative: Patient's rapid strep was negative. COVID test was negative. Clinically patient has otitis media. Will start patient on Z-Roman and Motrin. Close follow-up on an outpatient basis. Differential Diagnosis Otitis media, pharyngitis, COVID Lab Data [facility] Lab Attestation statement: I reviewed the patient's lab results. Labs: Lab Results 11/22/22 11/22/22 Range/Units 03:19 03:19 COVID-19 (EVER) Negative (Negative) COVID-19 Clin Com See Note S. pyogenes GrpA NORY Negative (Negative) Prescription Management I considered prescription management with: Pain Medication and Antibiotic Discharge Plan Discharge Clinical Impression: Otitis media Patient Disposition: Home, Self-Care Instructions: Ear Infection (ED) Prescriptions: New azithromycin 250 mg tablet See Rx Instructions .ROUTE .COMPLEX Qty: 6 0RF Rx Instructions: take 500 mg today (day 1), then 250 mg for 4 days (days 2-5) ibuprofen 400 mg tablet 400 mg PO Q6H PRN (Reason: pain) Qty: 20 0RF No Action polymyxin B sulf-trimethoprim [Polytrim] 10,000 unit- 1 mg/mL drops 1 drp ophthalmic-Left Q3H 7 Days Qty: 10 0RF Rx Instructions: while awake; do not exceed 6 doses in 24 hours doxycycline monohydrate 100 mg tablet 100 mg PO BID 10 Days Qty: 20 0RF cyclobenzaprine 10 mg tablet 10 mg PO Q8H PRN (Reason: Muscle spasm) Qty: 14 0RF codeine-guaifenesin [Guaifenesin AC] 10-100 mg/5 mL liquid 5 ml PO Q6H PRN (Reason: cold symptoms) Qty: 120 0RF naproxen 500 mg tablet 500 mg PO BID PRN (Reason: pain) Qty: 14 0RF oxycodone 5 mg tablet 5 mg PO Q6H PRN (Reason: pain) Qty: 14 0RF Rx Instructions: Partial Fill upon patient request. cephalexin 500 mg capsule 500 mg PO QID Qty: 28 0RF naproxen 500 mg tablet 500 mg PO BID PRN (Reason: pain) 10 Days Qty: 20 0RF sulfamethoxazole-trimethoprim [Bactrim DS] 800-160 mg tablet 1 tab PO BID 7 Days Qty: 14 0RF Referrals: Vale Mahmood [employer] [Primary Care Provider] -
== END 2022-11-22 04:16 | disposition home or self-care (01) ==
PROVIDERS: Emergency Provider Emergency Medicine Emergency Medical Services; PCP Nurse Practitioner Family
DX: H66.93 Otitis media, unspecified, bilateral (principal); J02.8 Acute pharyngitis due to other specified organisms; H92.03 Otalgia, bilateral; Z20.822 Contact with and (suspected) exposure to COVID-19; Z20.828 Contact with and (suspected) exposure to other viral communicable diseases; Z79.899 Other long term (current) drug therapy
CPT/HCPCS: 87635; 87651; 99283; 99284

== ENCOUNTER 2023-09-10 00:02 | Emergency (ER) | payer BC, SELFPAY ==
--- NOTE | ~2023-09-10 | XR_ITS ---
EXAMINATION: XR KNEE, LEFT CLINICAL INFORMATION: Fall, knee pain. COMPARISON: None available. TECHNIQUE: Four views of the left knee. FINDINGS: No fractures or subluxation. Mild joint space narrowing of the medial and patellofemoral compartments. No osseous erosions. No abnormal soft tissue calcifications. Trace joint effusion. XR/XR knee LT 4V IMPRESSION: 1. No acute fractures or subluxation. 2. Mild degenerative osteoarthritis of the medial and patellofemoral compartments. 3. Trace joint effusion.
[2023-09-10 00:13] VITALS: BP 139/82; PULSE 69; RESP 16; TEMP 36.8; O2SAT 99; BMI 34.4
--- NOTE | 2023-09-10 01:11 | ED_ITS ---
HPI - Extremity Injury (Lower) General Chief Complaint: Fall Stated Complaint: fall Time Seen by Provider: 09/10/23 00:59 Source: patient Mode of arrival: ambulatory Limitations: no limitations History of Present Illness HPI Narrative: Patient is a 43-year-old female who presents emergency department for evaluation of left knee pain. She reports 2 days ago she was attempting to climb over a baby gate when her foot got caught resulting in her falling and landing on the left knee. Denies any head strike or loss of consciousness. Over the past few days she has been applying ice and taking ibuprofen and frequently without much improvement in her symptoms. Has had intermittent numbness sensation throughout the knee. Pain is made worse with weight-bearing. Related Data Home Medications Medication Instructions Recorded Confirmed bupropion HCl 100 mg tablet,12 hr 100 mg PO BEDTIME 04/30/21 sustained-release (Wellbutrin SR) sumatriptan succinate 25 mg tablet 25 mg PO Q2-4H PRN 04/30/21 venlafaxine 25 mg tablet 25 mg PO DAILY 04/30/21 Previous Rx's Medication Instructions Recorded polymyxin B sulfate 10,000 1 drp ophthalmic-Left Q3H 7 days 03/03/21 unit-trimethoprim 1 mg/mL eye #10 mL drops (Polytrim) cephalexin 500 mg capsule 500 mg PO QID #28 caps 04/29/21 naproxen 500 mg tablet 500 mg PO BID PRN pain 10 days #20 04/29/21 tabs sulfamethoxazole 800 1 tab PO BID 7 days #14 tabs 04/30/21 mg-trimethoprim 160 mg tablet (Bactrim DS) codeine 10 mg-guaifenesin 100 mg/5 5 ml PO Q6H PRN cold symptoms #120 01/18/22 mL oral liquid (Guaifenesin AC) mL cyclobenzaprine 10 mg tablet 10 mg PO Q8H PRN Muscle spasm #14 01/18/22 tabs doxycycline monohydrate 100 mg 100 mg PO BID Pneumonia 10 days 01/18/22 tablet #20 tabs naproxen 500 mg tablet 500 mg PO BID PRN pain #14 tabs 01/18/22 oxycodone 5 mg tablet 5 mg PO Q6H PRN pain #14 tabs 01/18/22 azithromycin 250 mg tablet See Rx Instructions PO .COMPLEX 11/22/22 upper resp infection #6 tabs ibuprofen 400 mg tablet 400 mg PO Q6H PRN pain #20 tabs 11/22/22 Allergies Allergy/AdvReac Type Severity Reaction Status Date / Time No Known Allergies Allergy Verified 09/10/23 00:13 [No Known Allergies*] Review of Systems Review of Systems: Yes all other systems are reviewed and are negative [facility] Past Medical History Attestation statement: The following information was validated with the patient. Source: old records reviewed Medical History No known health problems Social History Social History Current occupation: rt handed/[employer]. Physical Exam Vital Signs: Vital Signs: Last Vital Signs Temp 98.2 F 09/10/23 00:13 Pulse 69 09/10/23 00:13 Resp 16 09/10/23 00:13 BP 139/82 09/10/23 00:13 Pulse Ox 99 09/10/23 00:13 O2 Del Method Room Air 09/10/23 00:13 BMI result Body Mass Index 34.4 Appearance: Alert.?Oriented to person, place and time. No acute distress.?Normal affect.?? Neck: Normal inspection.? Neck supple.?? CVS: Heart sounds normal. Normal heart rate and rhythm.? Pulses normal.?? Respiratory: No respiratory distress.? Lung sounds clear to auscultation bilaterally??? Skin: Skin warm and dry.? Normal skin color.? Extremities: No lower extremity edema.? No calf ttp. No obvious deformity of the left knee. No laxity upon examination. Valgus and varus stress test negative. Anterior-posterior drawer test negative. Ecchymosis over the medial superior aspect of the patella. Diffuse tenderness upon palpation. 2+ DP/PT pulse bilaterally. Neuro: Moves all extremities spontaneously. Sensation intact bilaterally. Ambulates with mildly antalgic gait. Medical Decision Making Medical Decision Making MDM Narrative: Patient is a 43-year-old female who presents emergency department for evaluation of traumatic left knee pain as per HPI. Appears overall well upon examination near full AROM, tenderness upon palpation as per physical exam portion of this note. XR imaging was obtained to exclude fracture/dislocation each feels no evidence of such, mild osteoarthritis is noted. Symptoms most consistent with sprain/contusion of the knee. Patient was advised to follow up primary care provider outpatient for persistent symptoms, advised ligamentous/meniscus injury not well visualized with XR imaging and she may require further evaluation in the future for persistent symptoms. Discussed rest, ice, compression with elastic bandage, elevation, high-dose anti-inflammatory/Tylenol. She was provided with crutches to allow for appropriate rest. Reviewed worrisome signs and symptoms that would warrant re-evaluation emergency department. All questions answered. Stable for discharge. Differential Diagnosis Differential Diagnoses: The differential diagnosis associated with the presentation includes (As noted above) Independent Interpretation I performed an independent interpretation of an: Plain X-Ray (No fracture dislocation) Radiology Impression Discussion of test interpretation with radiology: I have reviewed the radiologist's reading. Radiologist Impression: XR/XR knee LT 4V IMPRESSION: 1. No acute fractures or subluxation. 2. Mild degenerative osteoarthritis of the medial and patellofemoral compartments. 3. Trace joint effusion. Prescription Management I considered prescription management with: Pain Medication (Acetaminophen/ibuprofen) Discharge Plan Discharge Clinical Impression: Knee sprain Patient Disposition: Home, Self-Care Instructions: Knee Sprain (ED), Crutch Instructions (ED), How to Use an Elastic Bandage (ED) Additional Instructions: You can take ibuprofen 200 mg, 3 tablets (600mg) every 6-8 hours as needed for pain, in addition to Tylenol 500 mg, 2 tablets (1,000mg) every 4-6 hours as needed for pain, but not to exceed 3 doses daily (3,000mg).? Use of crutches over the next few days to allow herself time to rest and inflammation to decrease. You may begin putting weight on the leg as tolerated. Follow-up with your primary care provider for persistent symptoms. You may return back to emergency department any new or worsening symptoms or concerns. Prescriptions: No Action polymyxin B sulf-trimethoprim [Polytrim] 10,000 unit- 1 mg/mL drops 1 drp ophthalmic-Left Q3H 7 Days Qty: 10 0RF Rx Instructions: while awake; do not exceed 6 doses in 24 hours doxycycline monohydrate 100 mg tablet 100 mg PO BID 10 Days Qty: 20 0RF cyclobenzaprine 10 mg tablet 10 mg PO Q8H PRN (Reason: Muscle spasm) Qty: 14 0RF codeine-guaifenesin [Guaifenesin AC] 10-100 mg/5 mL liquid 5 ml PO Q6H PRN (Reason: cold symptoms) Qty: 120 0RF naproxen 500 mg tablet 500 mg PO BID PRN (Reason: pain) Qty: 14 0RF oxycodone 5 mg tablet 5 mg PO Q6H PRN (Reason: pain) Qty: 14 0RF Rx Instructions: Partial Fill upon patient request. cephalexin 500 mg capsule 500 mg PO QID Qty: 28 0RF naproxen 500 mg tablet 500 mg PO BID PRN (Reason: pain) 10 Days Qty: 20 0RF azithromycin 250 mg tablet See Rx Instructions .ROUTE .COMPLEX Qty: 6 0RF Rx Instructions: take 500 mg today (day 1), then 250 mg for 4 days (days 2-5) ibuprofen 400 mg tablet 400 mg PO Q6H PRN (Reason: pain) Qty: 20 0RF sulfamethoxazole-trimethoprim [Bactrim DS] 800-160 mg tablet 1 tab PO BID 7 Days Qty: 14 0RF Referrals: Physician,Unknown J [Physician] -
== END 2023-09-10 01:25 | disposition home or self-care (01) ==
PROVIDERS: Emergency Provider Internal Medicine; PCP Nurse Practitioner Family
DX: S83.92XA Sprain of unspecified site of left knee, initial encounter (principal); W18.30XA Fall on same level, unspecified, initial encounter; Y93.9 Activity, unspecified; Y92.9 Unspecified place or not applicable; Y99.9 Unspecified external cause status
CPT/HCPCS: 73564; 99282; 99283